=== PATIENT | female | born 1980 | race Two or more races ===

== ENCOUNTER 2018-06-20 21:33 | Emergency (ER) | payer MEDICAID ==
[~2018-06-20] VITALS: Ht 154.9 cm; Wt 74.8 kg
[2018-06-20 21:40] VITALS: BP 160/80
[2018-06-20 22:23] LABS: APPEARANCE,URINE SLIGHTLY CLOUDY; BILIRUBIN, URINE 1+ (NEGATIVE); GLUCOSE, URINE (UA) NEGATIVE (NEGATIVE); KETONES,URINE 4+ (NEGATIVE); LEUKOCYTE ESTERASE ,URINE 2+ (NEGATIVE); NITRITE,URINE NEGATIVE (NEGATIVE); PH,URINE 6 (4.5-8.0); PROTEIN,URINE 2+ (NEGATIVE); UROBILINOGEN,URINE 8 MG/DL (0.0-1.0)
[2018-06-20 22:24] LABS: BASOPHILS % (AUTO) 0.8 % (0.0-2.0); EOSINOPHILS % (AUTO) 0.9 % (0.0-3.0); HEMOGLOBIN 11.9 G/DL (12.0-16.0); LYMPHOCYTES % (AUTO) 22.7 % (20.0-45.0); MEAN CORPUSCULAR VOLUME 83 FL (80-99); MONOCYTES % (AUTO) 7.1 % (1.0-10.0); NEUTROPHILS % (AUTO) 68.5 % (45.0-75.0); PLATELET COUNT 309 K/UL (150-450); RED BLOOD COUNT 4.34 M/UL (4.20-5.40); RED CELL DISTRIBUTION WIDTH 12.1 % (11.6-14.8); WHITE BLOOD COUNT 9.7 K/UL (4.8-10.8)
[2018-06-20 22:25] LABS: COLOR,URINE AMBER
[2018-06-20 22:27] LABS: ANION GAP 14 mmol/L (5-15); BLOOD UREA NITROGEN 14 mg/dL (7-18); CARBON DIOXIDE 20 MMOL/L (21-32); CHLORIDE 100 MMOL/L (98-107); CREATININE 0.9 MG/DL (0.55-1.30); POTASSIUM 3.1 MMOL/L (3.5-5.1); SODIUM 134 MMOL/L (136-145)
[2018-06-20 22:38] LABS: ALANINE AMINOTRANSFERASE 44 U/L (12-78); ALBUMIN 3.4 G/DL (3.4-5.0); ALBUMIN/GLOBULIN RATIO 0.7 (1.0-2.7); ALKALINE PHOSPHATASE 93 U/L (46-116); ASPARTATE AMINO TRANSFERASE 58 U/L (15-37); BILIRUBIN,TOTAL 1.3 MG/DL (0.2-1.0)
[2018-06-20 22:40] LABS: BILIRUBIN,DIRECT 0.4 MG/DL (0.0-0.3)
[2018-06-20] MEDS ORDERED: Cephalexin 500mg cap ORAL ONE (23:00)
--- NOTE | 2018-06-21 01:07 | Emergency Room Report ---
History of Present Illness General Chief Complaint: Pain Source: Patient Present Illness HPI Is a 38-year-old female with unknown past medical history. She presents with chief complaint as bilateral feet pain. She was brought in by EMS with police escort as a 5150. She admitted to using methamphetamine tonight. She was climbing on people's garage. Denies any suicidal thoughts or homicidal thought. She does have a psychiatric history with recent hospitalization. Right now, denies any complaint. She is but does not know how far along. Allergies: Coded Allergies: No Known Allergies (Unverified , 06/20/18) Patient History Past Medical History: see triage record, old chart reviewed Past Surgical History: other Pertinent Family History: none Social History: Reports: drug use Last Menstrual Period: january 24 Now: No Immunizations: other Reviewed Nursing Documentation: PMH: Agreed; PSxH: Agreed Nursing Documentation-PMH Past Medical History: No Stated History Review of Systems Eye: Denies: eye pain, blurred vision ENT: Denies: ear pain, nose congestion, throat swelling Respiratory: Denies: cough, shortness of breath Cardiovascular: Denies: chest pain, palpitations Gastrointestinal: Denies: abdominal pain, diarrhea, nausea, vomiting Musculoskeletal: Denies: back pain, joint pain Skin: Denies: rash Neurological: Denies: headache, numbness Endocrine: Denies: increased thirst, increased urine Hematologic/Lymphatic: Denies: easy bruising All Other Systems: negative except mentioned in HPI Physical Exam Vital Signs Date Time Temp Pulse Resp B/P (MAP) Pulse Ox O2 Delivery O2 Flow Rate FiO2 06/20/18 21:33 98.4 88 18 160/80 98 Room Air vitals with high blood pressure Sp02 EP Interpretation: reviewed, normal General Appearance: well appearing, no apparent distress, alert Head: normocephalic, atraumatic Eyes: bilateral eye PERRL, bilateral eye EOMI ENT: hearing grossly normal, normal pharynx Neck: full range of motion, supple, no meningismus Respiratory: chest non-tender, lungs clear, normal breath sounds Cardiovascular #1: regular rate, rhythm, no murmur Gastrointestinal: normal bowel sounds, non tender, no mass, no organomegaly, no bruit, non-distended, other - gravid. fundus measured over 20 weeks. Musculoskeletal: back normal, gait/station normal, normal range of motion Neurologic: alert, oriented x3 Psychiatric: mood/affect normal Skin: warm/dry Medical Decision Making Diagnostic Impression: Primary Impression: Methamphetamine abuse Additional Impressions: UTI (urinary tract infection) Qualified Codes: N30.00 - Acute cystitis without hematuria Anemia Qualified Codes: D64.9 - Anemia, unspecified Hypokalemia Second trimester ER Course This with bizarre behavior secondary to drug abuse. Could also be underlying psychiatric issue. She is , and her third trimester. I did a bedside ultrasound that showed a viable fetus with good movement and heart rate. Patient is medically clear for psychiatric evaluation. Pt has been stable throughout ED stay. no issues. Difficult to transfer bc of her . Psych eval pending. Lab Results Impression labs unremarkable Last Vital Signs Date Time Temp Pulse Resp B/P (MAP) Pulse Ox O2 Delivery O2 Flow Rate FiO2 06/20/18 21:40 98.4 86 18 160/80 98 Room Air Status: improved Disposition: XFER TO PSYCH HOSP/UNIT Condition: Stable Referrals: NOT CHOSEN JANAE/,REFERRING (PCP) Omar Lovell MD Jun 21, 2018 01:06
[2018-06-21 01:35] VITALS: BP 152/76
[2018-06-21 05:33] VITALS: BP 122/71
[2018-06-21 10:31] VITALS: BP 120/71
--- NOTE | 2018-06-21 13:56 | Diagnostic Imaging Report ---
Indication: Adnexal pain, positive test Technique: Transabdominal and transvaginal images Comparison: none Findings: There is a single live intrauterine . This demonstrates positive heart activity, heart rate 144 bpm. Normal amniotic fluid volume, amniotic fluid index 16.9 cm. Anterolateral fundal placenta, clears the internal cervical os. Closed cervix, endocervical canal measuring 41 mm measurements as follows: Biparietal diameter 52 mm, 21 weeks 6 days; head circumference one 93 mm, 21 weeks 4 days; abdominal circumference one 63 mm, 21 weeks 2 days; femur length 39 mm, 22 week 4 days. Estimated gestational age by average of ultrasound measurements is 21 weeks 6 days. Estimated gestational age by dates is 21 weeks one day. Estimated date of delivery 10/26/2018 Only limited assessment of anatomy, due to emergent nature of the exam. Grossly unremarkable cervical spine, thoracic spine, lumbar spine, four-chamber heart, three-vessel cord. Neither ovary could be demonstrated. No free cul-de-sac fluid Impression: Single live intrauterine , estimated gestational age 21 weeks 6 days by average of ultrasound measurements. No unusual features
[2018-06-21 18:53] VITALS: BP 125/72
[2018-06-21 20:50] VITALS: BP 130/74
[2018-06-22 02:00] VITALS: BP 128/70
[2018-06-22 06:04] VITALS: BP 116/70
[2018-06-22 08:30] VITALS: BP 114/76
[2018-06-22] MEDS ORDERED: Cephalexin 500mg cap ORAL ONE (10:00)
[2018-06-22 11:55] VITALS: BP 120/78
[2018-06-22 13:06] VITALS: BP 120/78
== END 2018-06-22 13:06 ==
LOC: EDBD 21:33 → EMR 21:54
DX: F15.10 Other stimulant abuse, uncomplicated (principal); O23.42 Unspecified infection of urinary tract in pregnancy, second trimester; O26.892 Other specified pregnancy related conditions, second trimester; E87.6 Hypokalemia; Z3A.21 21 weeks gestation of pregnancy
CPT/HCPCS: 36415; 76805; 80053; 80307; 80329; 81003; 81025; 82248; 85025; 87086; 99285; J8499